=== PATIENT | male | born 1985 | race Caucasian/White ===

== ENCOUNTER 2020-10-12 12:26 | Emergency (ER) | payer OTHER, BC ==
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
[2020-10-12] MEDS ORDERED: HYDROmorphone 1 MG/ML Syringe ONE (13:18)
[2020-10-12] MEDS ORDERED: HYDROmorphone 1 MG/ML Syringe IVPUSH ONE ×2 (13:18→14:18)
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
--- NOTE | 2020-10-12 14:42 | CT ---
[id number] CT/CT Knee Right WO IV Exam: CT Knee Right WO IV Clinical Data: COMPLEX RIGHT KNEE FRACTURE COMPARISON: CORRELATION IS MADE WITH THE EARLIER PLAIN FILMS FINDINGS: The lateral tibial plateau fracture is depressed a distance of 5 mm The fracture involves the tibial spines The fracture is comminuted The proximal right fibular fracture is also comminuted The fracture has an inverted T configuration There is a horizontal component that involves the majority of the proximal right tibial metaphysis IMPRESSION: COMPLEX DEPRESSED COMMINUTED RIGHT TIBIAL FRACTURE WITH INTRA-ARTICULAR INVOLVEMENT Ti Gomez MD 10/12/20 [id number] Thank you for allowing us to participate in the care of your patient.
== END 2020-10-12 14:45 ==
LOC: KA.ED 12:26
DX: S82.121A Displaced fracture of lateral condyle of right tibia, initial encounter for closed fracture (principal); S82.831A Other fracture of upper and lower end of right fibula, initial encounter for closed fracture; V29.9XXA Motorcycle rider (driver) (passenger) injured in unspecified traffic accident, initial encounter; Y93.55 Activity, bike riding
CPT/HCPCS: 29505; 73562-RT; 73700-RT; 96374; 96376; 99283; 99285-25; J1170